=== PATIENT | male | born 1970 | race Caucasian/White ===

== ENCOUNTER → 2018-05-13 | Outpatient (CLI) | payer OTHER ==
[~2018-05-13] MED LIST: AZI250 PO; GARL400T18 PO; HYDR-2966 PO; LISI-362 PO; PRE10 PO; RAMI5CAP72 PO; SULF-120 PO
--- NOTE | 2018-05-13 09:45 | RADIOLOGY IMAGING REPORT ---
FACILITY: [facility] PATIENT NAME: Curtis Bell : 1970 MR: [id number] V: [id number] EXAM DATE: ORDERING PHYSICIAN: ESHA MUNOZ TECHNOLOGIST: Location: [facility] Patient: Curtis Bell : 1970 Visit/Account:[id number] Date of Sevice: 05/13/2018 GALLBLADDER HISTORY: Abdomen pain COMPARISON: None. FINDINGS: Gallbladder: There multiple shadowing stones within the gallbladder. There is a negative Alfaro sign by technologist notation. Liver: The liver appears enlarged measuring 21.4 cm in length. There is increased echogenicity throu ghout liver which can be seen with fatty infiltration or other infiltrative process Common duct: Mildly dilated 6.5 mm diameter. Pancreas: Partially obscured by bowel, visualized aspects unremarkable. Right kidney: Right kidney appears unremarkable measuring 10.1 cm in length Upper abdominal aorta and IVC: Patent. Ascites: None visualized. IMPRESSION: Cholelithiasis although no evidence of a positive Alfaro sign , Bile duct is mildly dilated at 6.5 mm Hepatomegaly with increased echogenicity throughout liver which can be seen with fatty infiltration o ther infiltrative process Report Dictated By: Sarah Preciado MD at 05/13/2018 9:37 AM Report E-Signed By: Sarah Preciado MD at 05/13/2018 9:39 AM WSN:[email or web address]
== END ==
LOC: US 01:07
PROVIDERS: ATTEND Family Medicine
DX: K80.20 Calculus of gallbladder without cholecystitis without obstruction (principal); K76.0 Fatty (change of) liver, not elsewhere classified
CPT/HCPCS: 76705